=== PATIENT | male | born 1955 | race Two or more races ===

== ENCOUNTER 2016-11-24 08:05 | Emergency (ER) | payer OTHER ==
[2016-11-24] MEDS ORDERED: MORPHINE SULFATE 10 MG/ML INJ IM ONE (09:19)
[2016-11-24] MEDS ORDERED: DEXAMETHASONE SOD PHOS INJ 10 MG/1 ML VIAL IM ONE (09:19)
--- NOTE | 2016-11-24 09:22 | ER Document Report ---
ED General - General Chief Complaint: Leg Pain Stated Complaint: LEG PAIN Time Seen by Provider: 11/24/16 08:41 Mode of Arrival: Ambulatory Information source: Patient Notes: 60-year-old male history of chronic back pain with sciatica who has been on Percocet in the past was was switched to gabapentin notes that for the past 3 days his pain has not been controlled well. Patient denies any new injuries denies any loss of bowel or bladder function denies any numbness or weakness in the leg. TRAVEL OUTSIDE OF THE [place] IN LAST 30 DAYS: No - HPI Onset: Other - Chronic but worsened over the past 3 days Onset/Duration: Worse Quality of pain: Achy Severity: Mild Pain Level: 2 Associated symptoms: Body/muscle aches Exacerbated by: Movement, Walking Relieved by: Denies Similar symptoms previously: Yes Recently seen / treated by doctor: Yes - Related Data Allergies/Adverse Reactions: No Known Allergies Allergy (Verified 11/24/16 08:13) Past Medical History - Social History Smoking Status: Current Every Day Smoker Cigarette use (# per day): Yes Chew tobacco use (# tins/day): No Smoking Education Provided: No Frequency of alcohol use: None Drug Abuse: None Family History: Reviewed & Not Pertinent Patient has suicidal ideation: No Patient has homicidal ideation: No - Past Medical History Cardiac Medical History: Reports: Hx Coronary Artery Disease, Hx Heart Attack - 2008, 2 stents placed, Hx Hypertension Pulmonary Medical History: Denies: Hx Asthma, Hx Bronchitis, Hx COPD, Hx Pneumonia Neurological Medical History: Denies: Hx Cerebrovascular Accident, Hx Seizures Renal/ Medical History: Denies: Hx Peritoneal Dialysis Musculoskeltal Medical History: Reports Hx Arthritis Past Surgical History: Reports: Hx Cardiac Surgery, Hx Nose Surgery, Hx Orthopedic Surgery - Immunizations Hx Diphtheria, Pertussis, Tetanus Vaccination: Yes Review of Systems - Review of Systems Notes: PHYSICAL EXAMINATION: GENERAL: Well-appearing, well-nourished and in no acute distress. HEAD: Atraumatic, normocephalic. EYES: Pupils equal round and reactive to light, extraocular movements intact, sclera anicteric, conjunctiva are normal. ENT: Nares patent, oropharynx clear without exudates. Moist mucous membranes. NECK: Normal range of motion, supple without lymphadenopathy LUNGS: Breath sounds clear to auscultation bilaterally and equal. No wheezes rales or rhonchi. HEART: Regular rate and rhythm without murmurs ABDOMEN: Soft, nontender, nondistended abdomen. No guarding, no rebound. No masses appreciated. Musculoskeletal: Normal range of motion, no pitting or edema. No cyanosis. Patient is able to ambulate with cane with no difficulty tenderness on palpation of the L3-L5 region no step-off no deformity NEUROLOGICAL: Cranial nerves grossly intact. Normal speech, normal gait. Normal sensory, motor exams PSYCH: Normal mood, normal affect. SKIN: Warm, Dry, normal turgor, no rashes or lesions noted. Physical Exam - Vital signs Vitals: Temp Pulse Resp BP Pulse Ox 97.7 F 67 16 129/69 H 97 11/24/16 08:14 11/24/16 08:14 11/24/16 08:14 11/24/16 08:14 11/24/16 08:14 Course - Re-evaluation Re-evalutation: 11/24/16 09:19 Patient instructed on risks and benefits of medications prescribed. Denies any concerns regarding such. 11/24/16 12:16 Given that there is no cauda equina concerns I do not expect any life- threatening issues, I do not believe imaging is appropriate at this time. Patient has follow-up with [facility] must follow-up with them. Otherwise patient looks well is in no distress will be started on steroids and pain control and follow-up After performing a Medical Screening Examination, I estimate there is LOW risk for EXPANDING OR RUPTURED ABDOMINAL AORTIC ANEURYSM, CAUDA EQUINA SYNDROME, EPIDURAL MASS LESION, or HERNIATED DISK CAUSING SEVERE SPINAL STENOSIS, thus I consider the discharge disposition reasonable. I have reevaluated this patient multiple times and no significant life threatening changes are noted. The patient and I have discussed the diagnosis and risks, and we agree with discharging home and close follow-up. We also discussed returning to the Emergency Department immediately if new or worsening symptoms occur with the understanding that symptoms and presentations can change. We have discussed the symptoms which are most concerning (e.g., saddle anesthesia, urinary or bowel incontinence or retention, changing or worsening pain) that necessitate immediate return. - Vital Signs Vital signs: Temp Pulse Resp BP Pulse Ox 97.8 F 70 16 128/64 H 97 11/24/16 09:45 11/24/16 09:45 11/24/16 09:45 11/24/16 09:45 11/24/16 09:45 Discharge - Discharge Clinical Impression: Sciatic leg pain Chronic leg pain Qualifiers: Laterality: left Qualified Code(s): M79.605 - Pain in left leg Condition: Stable Disposition: HOME, SELF-CARE Instructions: Sciatica (OM) Additional Instructions: Follow up with your physician tomorrow for further care or return to the ED IMMEDIATELY if symptoms worsen or new concerns occur. If you cannot afford to follow up with your primary care physician a list of low cost clinics have been provided at the end of your discharge papers as well. Prescriptions: Oxycodone HCl/Acetaminophen [Percocet 5-325 mg Tablet] 1 - 2 tab PO Q4H PRN #15 tablet PRN Reason: Prednisone [Deltasone 20 mg Tablet] 3 tab PO DAILY 5 Days
[2016-11-24 09:58] VITALS: BP 128/64
== END 2016-11-24 09:48 | disposition home or self-care (01) ==
LOC: ER 08:05
DX: M54.42 Lumbago with sciatica, left side (principal); G89.29 Other chronic pain; M79.1 Myalgia; F17.210 Nicotine dependence, cigarettes, uncomplicated; I25.10 Atherosclerotic heart disease of native coronary artery without angina pectoris; I10 Essential (primary) hypertension; I25.2 Old myocardial infarction
CPT/HCPCS: 99283; 96372; J2270; J1100

== ENCOUNTER 2017-04-04 10:38 | Emergency (ER) | payer OTHER ==
[2017-04-04 10:45] VITALS: BP 149/82
[2017-04-04] MEDS ORDERED: DEXAMETHASONE SOD PHOS INJ 10 MG/1 ML VIAL IM ONE (11:02)
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
== END 2017-04-04 11:20 | disposition home or self-care (01) ==
LOC: ER 10:38
DX: M54.42 Lumbago with sciatica, left side (principal); M79.604 Pain in right leg; M79.605 Pain in left leg; M54.9 Dorsalgia, unspecified; G89.29 Other chronic pain; F17.210 Nicotine dependence, cigarettes, uncomplicated
CPT/HCPCS: 99283; J1100

== ENCOUNTER 2017-04-23 15:42 | Emergency (ER) | payer OTHER ==
[2017-04-23] MEDS ORDERED: HYDROMORPHONE HCL INJ/PF 2 MG/ML AMPULE IV ONE (16:01)
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
[2017-04-23] MEDS ORDERED: NORMAL SALINE 1000 ML 1,000 ML IV ONE (16:55)
[2017-04-23] MEDS ORDERED: CEFTRIAXONE 1 GM/D5W RTU 1 GM/50 ML RTUPB IV ONE (16:55)
[2017-04-23 18:25] VITALS: BP 142/98
[2017-04-23] MEDS ORDERED: OXYCODONE-ACETAMINOPHEN 5-325 MG TABLET PO ONE (18:28)
== END 2017-04-23 18:40 | disposition short-term general hospital (02) ==
LOC: ER 15:42
DX: T23.232A Burn of second degree of multiple left fingers (nail), not including thumb, initial encounter (principal); I10 Essential (primary) hypertension; F17.210 Nicotine dependence, cigarettes, uncomplicated; X10.2XXA Contact with fats and cooking oils, initial encounter
CPT/HCPCS: 99285; 96375; 96365; J1170; J7030; J0696

== ENCOUNTER 2018-06-01 13:54 | Emergency (ER) | payer OTHER ==
[2018-06-01 14:01] VITALS: BP 155/92
[2018-06-01] MEDS ORDERED: DIAZEPAM 5 MG TABLET PO ONE (14:34)
[2018-06-01] MEDS ORDERED: KETOROLAC TROMETHAMINE 60 MG/2 ML SDV IM ONE (14:34)
[2018-06-01] MEDS ORDERED: METHYLPREDNISOLONE ACETATE INJ 80 MG/1 ML VIAL IM ONE (14:34)
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
== END 2018-06-01 14:54 | disposition home or self-care (01) ==
LOC: ER 13:54
DX: M54.16 Radiculopathy, lumbar region (principal); F17.200 Nicotine dependence, unspecified, uncomplicated; I25.10 Atherosclerotic heart disease of native coronary artery without angina pectoris; I10 Essential (primary) hypertension; Z95.5 Presence of coronary angioplasty implant and graft
CPT/HCPCS: 99283; 96372; J1885; J1040

== ENCOUNTER 2018-10-07 11:36 | Emergency (ER) | payer OTHER ==
[2018-10-07 11:45] VITALS: BP 131/73
[2018-10-07] MEDS ORDERED: DEXAMETHASONE SOD PHOS INJ 10 MG/1 ML VIAL IM ONE (12:14)
[2018-10-07] MEDS ORDERED: LIDOCAINE 5% (700 MG) TRANSDERMAL ADH..PATCH TP ONE (12:15)
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
== END 2018-10-07 12:20 | disposition home or self-care (01) ==
LOC: ER 11:36
DX: M54.42 Lumbago with sciatica, left side (principal); F17.210 Nicotine dependence, cigarettes, uncomplicated; I25.10 Atherosclerotic heart disease of native coronary artery without angina pectoris; I25.2 Old myocardial infarction; E78.00 Pure hypercholesterolemia, unspecified; I10 Essential (primary) hypertension
CPT/HCPCS: 99406; 99283; 96372; J1100

== ENCOUNTER 2019-03-12 21:49 | Emergency (ER) | payer OTHER ==
[2019-03-12] MEDS ORDERED: NORMAL SALINE 1000 ML 1,000 ML IV ONE (22:04)
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
[2019-03-12 22:11] LABS: ABSOLUTE BASOPHILS # (AUTO) 0.1 10^3/uL (0.0-0.2); ABSOLUTE EOSINOPHILS # (AUTO) 0.1 10^3/uL (0.0-0.6); ABSOLUTE MONOCYTES (AUTO) 0.7 10^3/uL (0.1-1.4); ABSOLUTE NEUT (AUTO) 9.5 10^3/uL (1.7-8.2); BASOPHILS % (AUTO) 0.5 % (0-2); EOSINOPHILS % (AUTO) 0.6 % (0-6); HEMATOCRIT 49.5 % (37.9-51.0); HEMOGLOBIN 16.6 g/dL (13.5-17.0); LYMPHOCYTES % (AUTO) 8.7 % (13-45); MEAN CORPUSCULAR HEMOGLOBIN 29.7 pg (27.0-33.4); MEAN CORPUSCULAR HGB CONC 33.5 g/dL (32.0-36.0); MEAN CORPUSCULAR VOLUME 89 fl (80-97); PLATELET COUNT 261 10^3/uL (150-450); RED BLOOD COUNT 5.58 10^6/uL (4.35-5.55); RED CELL DISTRIBUTION WIDTH 13.9 % (11.5-14.0); SEGMENTED NEUTROPHILS % (AUTO) 84.2 % (42-78); TOTAL CELLS COUNTED % (AUTO) 100 %; WHITE BLOOD COUNT 11.3 10^3/uL (4.0-10.5)
[2019-03-12 22:31] LABS: ALBUMIN 4.2 g/dL (3.5-5.0); ALKALINE PHOSPHATASE 1087 U/L (38-126); ANION GAP 14 (5-19); ASPARTATE AMINO TRANSFERASE 276 U/L (17-59); BILIRUBIN,DIRECT 2.9 mg/dL (0.0-0.4); BILIRUBIN,TOTAL 3.5 mg/dL (0.2-1.3); BLOOD UREA NITROGEN 13 mg/dL (7-20); CALCIUM 9.7 mg/dL (8.4-10.2); CARBON DIOXIDE 25 mmol/L (22-30); CHLORIDE 99 mmol/L (98-107); GLUCOSE 128 mg/dL (75-110); POTASSIUM 4.1 mmol/L (3.6-5.0); TOTAL PROTEIN 8.1 g/dL (6.3-8.2)
[2019-03-12] MEDS ORDERED: MORPHINE SULFATE 10 MG/ML INJ IV ONE (22:56)
--- NOTE | 2019-03-13 00:16 | EKG REPORT ---
SEVERITY:- ABNORMAL ECG - SINUS RHYTHM PROBABLE LEFT ATRIAL ABNORMALITY PROBABLE INFERIOR INFARCT, AGE INDETERMINATE CONSIDER ANTERIOR INFARCT : Confirmed by: Haley Varela MD 13-Mar-2019 00:15:04
--- NOTE | 2019-03-13 00:29 | RADIOLOGY REPORT (SQ) ---
EXAM DESCRIPTION: US ABDOMEN LIMITED COMPLETED DATE/TME: 03/12/2019 22:55 CLINICAL HISTORY: 63 years, Male, RUQ pain COMPARISON: CT 12/28/2015 TECHNIQUE: Limited right upper quadrant ultrasound LIMITATIONS: None. FINDINGS: The liver is heterogeneous and nodular in echotexture. There is a 3.9 x 2.8 x 4.1 cm hypo to isoechoic nodular area within the left hepatic lobe. Further assessment with multiphasic CT or MRI is recommended. The gallbladder appears contracted. Stones and sludge in the gallbladder lumen. Pain with palpation over the right upper quadrant. Subjective gallbladder wall thickening may in part relate to the contracted state of the gallbladder. The CBD is not dilated measuring 3.3 cm. Pancreas is not well seen due to bowel gas. Visualized abdominal aorta inferior vena cava are unremarkable. No ascites. Simple right renal cyst measuring 6.6 x 6.4 cm. IMPRESSION: Heterogeneous echotexture to the liver may reflect fatty infiltrative change and/or hepatocellular disease. 3.9 cm complex hypoechoic to isoechoic area in the left hepatic lobe. This is nonspecific however further assessment with multiphasic MRI or CT is recommended. Cholelithiasis. The gallbladder is somewhat contracted. Pain with palpation over the right upper quadrant. The CBD is not dilated. Simple right renal cyst copyright 2010 [employer]- All Rights Reserved
[2019-03-13] MEDS ORDERED: PIPERACILLIN/TAZOBACTAM 3.375 GM VIAL IV ONE (00:50)
[2019-03-13] MEDS ORDERED: NORMAL SALINE 1000 ML 1,000 ML IV ONE (01:37)
[2019-03-13] MEDS: MORPHINE SULFATE 10 MG/ML INJ IV PRN ×4 (02:17→20:07)
--- NOTE | 2019-03-13 09:11 | ER Document Report ---
Doctor's Note Notes: 03/13/19 09:09 Patient noted by me patient is being transferred for consideration of ERCP Zosyn is scheduled every 6 hours while in this emergency department. Patient stable at this time
[2019-03-13] MEDS: PIPERACILLIN/TAZOBACTAM 3.375 GM VIAL IV SCH ×3 (09:23→20:08)
[2019-03-13] MEDS ORDERED: FAMOTIDINE INJ/PF 20 MG/2 ML SDV IV ONE (20:30)
[2019-03-13] MEDS ORDERED: ONDANSETRON HCL INJ/PF 4 MG/2 ML SDV IV ONE (20:30)
[2019-03-13] MEDS ORDERED: POTASSI CL 20 MEQ/D5-1/2NS 1L 1,000 ML IV ONE (20:31)
[2019-03-13 21:28] LABS: ABSOLUTE BASOPHILS # (AUTO) 0.1 10^3/uL (0.0-0.2); ABSOLUTE LYMPHOCYTES (AUTO) 1.3 10^3/uL (0.5-4.7); BASOPHILS % (AUTO) 0.5 % (0-2); TOTAL CELLS COUNTED % (AUTO) 100 %
[2019-03-13 21:34] LABS: ABSOLUTE MONOCYTES (AUTO) 1.3 10^3/uL (0.1-1.4); ABSOLUTE NEUT (AUTO) 11.6 10^3/uL (1.7-8.2); EOSINOPHILS % (AUTO) 0.2 % (0-6); HEMATOCRIT 48.6 % (37.9-51.0); HEMOGLOBIN 16.3 g/dL (13.5-17.0); LYMPHOCYTES % (AUTO) 9.2 % (13-45); MEAN CORPUSCULAR HEMOGLOBIN 29.9 pg (27.0-33.4); MEAN CORPUSCULAR HGB CONC 33.5 g/dL (32.0-36.0); MEAN CORPUSCULAR VOLUME 89 fl (80-97); MONOCYTES % (AUTO) 9.3 % (3-13); PLATELET COUNT 243 10^3/uL (150-450); RED BLOOD COUNT 5.45 10^6/uL (4.35-5.55); RED CELL DISTRIBUTION WIDTH 14.1 % (11.5-14.0); SEGMENTED NEUTROPHILS % (AUTO) 80.8 % (42-78); WHITE BLOOD COUNT 14.4 10^3/uL (4.0-10.5)
[2019-03-13 21:52] LABS: ALBUMIN 3.9 g/dL (3.5-5.0); ALKALINE PHOSPHATASE 873 U/L (38-126); ANION GAP 10 (5-19); ASPARTATE AMINO TRANSFERASE 212 U/L (17-59); BILIRUBIN,DIRECT 7.3 mg/dL (0.0-0.4); BLOOD UREA NITROGEN 11 mg/dL (7-20); CALCIUM 9.4 mg/dL (8.4-10.2); CARBON DIOXIDE 25 mmol/L (22-30); CHLORIDE 99 mmol/L (98-107); GLUCOSE 106 mg/dL (75-110); POTASSIUM 4.2 mmol/L (3.6-5.0); TOTAL PROTEIN 7.6 g/dL (6.3-8.2)
[2019-03-13 22:01] LABS: BILIRUBIN,TOTAL 8.8 mg/dL (0.2-1.3)
[2019-03-14] MEDS: MORPHINE SULFATE 10 MG/ML INJ IV PRN ×3 (00:30→14:03)
[2019-03-14] MEDS: PIPERACILLIN/TAZOBACTAM 3.375 GM VIAL IV SCH ×3 (05:49→14:24)
[2019-03-14] MEDS ORDERED: HYDROMORPHONE HCL INJ/PF 2 MG/ML AMPULE IV ONE (10:21)
[2019-03-14] MEDS ORDERED: ONDANSETRON HCL INJ/PF 4 MG/2 ML SDV IV ONE (10:21)
--- NOTE | 2019-03-14 10:30 | ER Document Report ---
Doctor's Note Notes: 03/14/19 10:28 Assumed care of patient awaiting transfer to [facility] for gallstones and possible cholecystitis. In need of ERCP, not available at this hospital. Patient continues to complain of pain in the right upper quadrant and says she is been nauseated and vomiting but not currently. Abdomen is soft without guarding. I got a call from [facility] transfer center and they asked if we could do an MRCP here to perhaps be along the process of getting the patient there. I contacted MRI and a study will be formed PRETTY. Patient's lab studies had shown some significant worsening with his total bilirubin going from 3.5 at 2155 on 03/12/2019 and up to 8.8 total bilirubin on 03/13/2019 at 2116. 03/14/19 13:49 Patient has had his MRCP which shows gallstones and thickened gallbladder wall and pericholecystic fluid consistent with cholecystitis. His MRCP did not show clearly any problems with the common bile duct and was determined to be "not meaningfully evaluated". Of interest, patient has multiple liver masses, either hemangiomas or hepatocellular carcinoma. Also seen was thrombus within the right portal vein system and distal branches which does not exclude possibility of tumor thrombus. I have made the patient aware of these findings. Poke with Dr. Jc at [facility] and the plan is still to transfer the patient there, although there are no beds available at this time. 03/14/19 19:13 Patient told the nurse that he was going to leave and seek care elsewhere. I had already previously explained to the patient that we could not send him to another facility without having a bed assignment and excepting provider. He is currently on the waiting list for [facility] and for [facility] and several other places were called initially to see if they had capability of doing ERCP. Neither of the facilities have a likelihood of getting a bed tonight. Patient has been treated with pain medications as much as he needed during his stay. However, he does not understand why we cannot send him to one of these hospitals and he said he is going to leave and go to one of them himself. I advised him that I cannot advise him to do that and recommended that he be patient wait until we get a bed assignment at 1 of the 2 hospitals. Patient became rather hostile and angry and said he was very upset with his care at this facility.
--- NOTE | 2019-03-14 12:36 | RADIOLOGY REPORT (SQ) ---
EXAM DESCRIPTION: MRI ABDOMEN COMBO COMPLETED DATE/TIME: 03/14/2019 11:42 am REASON FOR STUDY: for MRCP, US WITH GALLSTONES COMPARISON: Abdominal ultrasound, 03/12/2019, CT abdomen pelvis, 12/28/2015 TECHNIQUE: Multiplanar multisequence imaging performed without and with multiphasic contrast enhance d including sagittal, axial and coronal T2, axial T1, axial gradient fat sat T1, axial, sagittal and coronal fat sat T1 post contrast. CONTRAST TYPE AND DOSE: 20 mL Dotarem. RENAL FUNCTION: Not indicated. ACR Type II contrast agent associated with few, if any, unconfounded cases of NSF LIMITATIONS: None. FINDINGS: LIVER: The liver is mildly enlarged, with a somewhat nodular contour and is very heterogen eous in signal texture and enhancement. There are multiple liver masses, with varying signal charact eristics and enhancement. A large subcapsular mass of the right lobe of the liver is seen on prior C T dated 12/28/2015 and demonstrates peripheral nodular enhancement consistent with hemangioma. There is a lesion of the central right lobe of the liver which likewise demonstrates peripheral nodular enh ancement and is seen on prior examination dated 12/28/2015, also consistent with a hemangioma. There are multiple additional masses and nodules, for example in the posterior dome of the right lobe of the liver measuring 3.4 cm, hepatic segment VII (series 104, image 17), and in the posterior infe rior right lobe of the liver measuring 4.1 cm, hepatic segment (series 104, image 44), which demon strate intermediate suspicion imaging features and contrast enhancement. There appears to be thrombus within the right portal vein and distal branches (series 14, image 32, s eries 15, image 33). SPLEEN: Normal size. No focal lesions. PANCREAS: No masses. No adjacent inflammation or peripancreatic fluid collections. Pancreatic duct no t dilated. GALLBLADDER: There is a calculus within the contracted gallbladder and gallbladder wall thickening an d/or pericholecystic fluid in the gallbladder fossa. MRCP is nondiagnostic due to motion artifact an d susceptibility artifact emanating from the duodenum. The central common bile duct is not meaningfu lly evaluated. ADRENAL GLANDS: No significant masses or asymmetry. RIGHT KIDNEY AND URETER: No masses. Exophytic cyst. No hydronephrosis. LEFT KIDNEY AND URETER: No masses. No hydronephrosis. AORTA AND VESSELS: No aneurysm. No dissection. Renal arteries, SMA, celiac without stenosis. RETROPERITONEUM: No retroperitoneal adenopathy, hemorrhage or masses. BOWEL: No visualized masses. No inflammation. No significant dilatation. ABDOMINAL WALL AND PERITONEUM: No hernias. No free fluid. BONES: No acute or significant findings. OTHER: No other significant finding. IMPRESSION: 1. There is a calculus within the contracted gallbladder and gallbladder wall thickenin g and/or pericholecystic fluid in the gallbladder fossa. MRCP is nondiagnostic due to motion artifac t and susceptibility artifact emanating from the duodenum. The central common bile duct is not meani ngfully evaluated. HIDA may be used to further evaluate for obstruction of the cystic or common bile duct if liver function allows. 2. The liver is mildly enlarged, with a somewhat nodular contour and is very heterogeneous in signal texture and enhancement. There are multiple liver masses, with varying signal characteristics and en hancement. A large subcapsular mass of the right lobe of the liver is seen on prior CT dated 12/28/19 16 and demonstrates peripheral nodular enhancement consistent with hemangioma. There is a lesion of the central right lobe of the liver which likewise demonstrates peripheral nodular enhancement and is seen on prior examination dated 12/28/2015, also consistent with a hemangioma. 3. There are multiple additional masses and nodules, for example in the posterior dome of the right l obe of the liver measuring 3.4 cm, hepatic segment VII (series 104, image 17), and in the posterior i nferior right lobe of the liver measuring 4.1 cm, hepatic segment (series 104, image 44), which de monstrate intermediate suspicion imaging features and contrast enhancement. 4. There appears to be thrombus within the right portal vein and distal branches (series 14, image 3 2, series 15, image 33). This is indeterminate with respect to composition, and tumor thrombus is no t excluded. 5. Within the general technical limitations of this examination, there are stigmata of cirrhosis and dysplastic nodularity of the liver. Multiple indeterminate masses carry intermediate suspicion for hepatocellular carcinoma (LI-RADS category 3, if LI-RADS criteria are to be applied). Consider repea t imaging, for example with multiphasic CT which may provide a technically superior exam, and/or foll ow-up imaging in 3-6 months to evaluate for interval change. TECHNICAL DOCUMENTATION: JOB ID: [id number]- All Rights Reserved Reading location - IP/workstation name: [email or web address]
[2019-03-14 13:41] VITALS: BP 124/76
[2019-03-14] MEDS ORDERED: HYDROMORPHONE HCL INJ/PF 2 MG/ML AMPULE IV PRN (17:38)
[2019-03-15 11:37] LABS: HEPATITS B SURFACE ANTIGEN Negative (Negative)
[2019-03-15 13:20] LABS: HEPATITIS C VIRUS ANTIBODY >11.0 s/co ratio (0.0-0.9)
== END 2019-03-14 19:21 | disposition short-term general hospital (02) ==
LOC: ER 21:49
DX: K81.9 Cholecystitis, unspecified (principal); E80.6 Other disorders of bilirubin metabolism; N28.1 Cyst of kidney, acquired; R10.9 Unspecified abdominal pain; I10 Essential (primary) hypertension; I25.10 Atherosclerotic heart disease of native coronary artery without angina pectoris; I25.2 Old myocardial infarction; E78.00 Pure hypercholesterolemia, unspecified
CPT/HCPCS: 93005; 36415; 83690; 85025; 86038; 80053; 84484; 80074; 74183; 76705; 93010; A9576; J2270 ×3; J1170; J3480; J2405 ×2; J7030 ×2; S0028; J2543 ×2; 96361; 96365; 96366; 96367; 96375; 96376; 99285

== ENCOUNTER 2019-04-05 17:38 | Emergency (ER) | payer OTHER ==
[2019-04-05] MEDS ORDERED: KETOROLAC TROMETHAMINE 60 MG/2 ML SDV IM ONE (18:28)
[2019-04-05] MEDS ORDERED: LIDOCAINE 5% (700 MG) TRANSDERMAL ADH..PATCH TP ONE (18:28)
[2019-04-05] MEDS ORDERED: CYCLOBENZAPRINE HCL 10 MG TABLET PO ONE (18:29)
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
[2019-04-05 19:52] VITALS: BP 144/98
== END 2019-04-05 19:51 | disposition home or self-care (01) ==
LOC: ER 17:38
DX: M54.42 Lumbago with sciatica, left side (principal); M54.9 Dorsalgia, unspecified; G89.29 Other chronic pain; X50.0XXA Overexertion from strenuous movement or load, initial encounter; F17.200 Nicotine dependence, unspecified, uncomplicated; I25.10 Atherosclerotic heart disease of native coronary artery without angina pectoris; I10 Essential (primary) hypertension
CPT/HCPCS: 99283; 96372; J1885

== ENCOUNTER 2019-04-16 22:56 | Emergency (ER) | payer OTHER ==
[2019-04-16] MEDS ORDERED: DEXAMETHASONE SOD PHOS INJ 10 MG/1 ML VIAL IM ONE (23:36)
[2019-04-16] MEDS ORDERED: HYDROCODONE/ACETAMINOPHEN 5-325 MG (6 TAB/ER DISP) PO PRN (23:37)
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
[2019-04-17 00:13] VITALS: BP 117/81
== END 2019-04-17 00:10 | disposition home or self-care (01) ==
LOC: ER 22:56
DX: M62.830 Muscle spasm of back (principal); M54.5 Low back pain; M54.9 Dorsalgia, unspecified; X50.0XXA Overexertion from strenuous movement or load, initial encounter; Z79.899 Other long term (current) drug therapy; F17.200 Nicotine dependence, unspecified, uncomplicated; I25.10 Atherosclerotic heart disease of native coronary artery without angina pectoris; I25.2 Old myocardial infarction; I10 Essential (primary) hypertension
CPT/HCPCS: 99283; 96372; J1100

== ENCOUNTER → 2019-07-10 | Outpatient (CLI) | payer OTHER ==
--- NOTE | 2019-07-10 13:57 | RADIOLOGY REPORT (SQ) ---
EXAM DESCRIPTION: CT CHEST WITH; CT ABD/PELVIS WITH IV ORAL COMPLETED DATE/TIME: 07/10/2019 1:04 pm REASON FOR STUDY: (C22.0)LIVER CELL CARCINOMA C22.0 LIVER CELL CARCINOMA COMPARISON: CT ABDOMEN PELVIS 12/28/2015, CT CHEST 12/31/2015 ABDOMINAL ULTRASOUND 03/12/2019 MRI ABDOMEN 03/14/2019 CONTRAST TYPE AND DOSE: contrast/concentration: Isovue 350.00 mg/ml; Total Contrast Delivered: 78.0 ml; Total Saline Delivered: 67.0 ml RENAL FUNCTION: Creatinine 0.9 TECHNIQUE: CT scan of the chest performed using helical scanning technique with dynamic intravenous contrast injection. Images reviewed with lung, soft tissue and bone windows. Reconstructed coronal a nd sagittal MPR images reviewed. All images stored on PACS. CT scan of the abdomen and pelvis performed with intravenous and with oral contrastusing helical scan kim technique with dynamic intravenous contrast injection. Images reviewed with lung, soft tissue a nd bone windows. Reconstructed coronal and sagittal MPR images reviewed. Delayed images for evaluat ion of the urinary system also acquired and evaluated. All images stored on PACS. All CT scanners at this facility use dose modulation, iterative reconstruction, and/or weight based d osing when appropriate to reduce radiation dose to as low as reasonably achievable (ALARA). [facility]: Dose Right [facility]: CareDose [facility]: Dose Right [facility]: Teradose 4D [facility]: Smart Technologies RADIATION DOSE: CT Rad equipment meets quality standard of care and radiation dose reduction techniq ues were employed. CTDIvol: 7.1 - 7.4 mGy. DLP: 1103 mGy-cm. . LIMITATIONS: None. FINDINGS: CHEST: LUNGS AND PLEURA: New subcentimeter nodules are present at the left lung apex axial image 14, and in the right lower lobe axial image 56 and 62. Findings are new compared to prior CT chest in 2015 and are worrisome for metastatic disease. HILAR AND MEDIASTINAL STRUCTURES: No identified masses or abnormal nodes. HEART AND VASCULAR STRUCTURES: No aneurysm or dissection. No central pulmonary emboli. No pericardi al effusion. HARDWARE: None. THYROID AND OTHER SOFT TISSUES: No masses. No adenopathy. BONES: T12 pathologic fracture with vertebra plana. There is less than 50% AP diameter canal comprom ise on sagittal image 37/69. 3 cm lytic lesion in the right scapula at the bony glenoid axial image 21. OTHER: No other significant finding. ABDOMEN AND PELVIS: LIVER: Progression of liver disease compared to MRI 03/14/2019 as follows: Right lobe liver subdiaphragmatic surface segment 7 lesion 5 x 4.5 cm in size (was 4 x 3.4 cm on 03/14). Right lobe liver mass 8 x 6 cm in size segment 8 (was 5.6 x 5 cm on 03/14/2019). Right lobe liver mass 5 x 6.2 cm mass segment 6 (was was 4 x 3.4 cm in size on 03/14/2019). Right lobe of liver mass 8 x 6 cm segment 6 (was 6.7 x 6 cm on 03/14/2019). There is now intrahepatic biliary ductal dilatation and the right lobe liver, likely due to extrinsic compression at the fabiana hepatis from tumor. Portal vein is patent. 3 x 1.4 cm portacaval space lymph node axial image 35/100 (was 2.9 by 1.4 cm on 03/14/2019). SPLEEN: Normal size. No focal lesions. PANCREAS: No masses. No significant calcifications. No adjacent inflammation or peripancreatic fluid collections. Pancreatic duct not dilated. GALLBLADDER: Tiny stones in the gallbladder. ADRENAL GLANDS: No significant masses or asymmetry. RIGHT KIDNEY AND URETER: No solid masses. No significant calcification. No hydronephrosis or hydroure ter. LEFT KIDNEY AND URETER: No solid masses. No significant calcification. No hydronephrosis or hydrouret er. AORTA AND VESSELS: No aneurysm. No dissection. Renal arteries, SMA, celiac without stenosis. RETROPERITONEUM: No retroperitoneal adenopathy, hemorrhage or masses. BOWEL AND PERITONEAL CAVITY: Patient drank oral contrast. No masses or inflammatory changes. No free fluid or peritoneal masses. APPENDIX: Normal. ABDOMINAL WALL: No masses. No hernias. PELVIS: No mass or free fluid. 4 mm calcification in the bladder wall near the left ureteral orifice into the bladder. This is new compared to prior studies. BONES: T12 vertebra plana deformity at the upper edge of the field of view OTHER: No other significant finding. IMPRESSION: Tiny in lung lesions worrisome for metastatic disease Bony metastatic lesions at the T12 vertebral body and right scapula Progression of disease in the liver TECHNICAL DOCUMENTATION: JOB ID: [id number] Quality ID # 436: Final reports with documentation of one or more dose reduction techniques (e.g., Au tomated exposure control, adjustment of the mA and/or kV according to patient size, use of iterative reconstruction technique) 2010 [employer]- All Rights Reserved Reading location - IP/workstation name: [email or web address]
== END ==
LOC: RAD 12:20
PROVIDERS: ATTEND Internal Medicine Hematology & Oncology
DX: C22.0 Liver cell carcinoma (principal)
CPT/HCPCS: 71260; 74177; 82565

== ENCOUNTER → 2019-07-20 | Outpatient (CLI) | payer OTHER ==
--- NOTE | 2019-07-21 14:45 | RADIOLOGY REPORT (SQ) ---
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 Images re viewed with lung, soft tissue and bone windows. Reconstructed coronal and sagittal MPR images review ed. Images stored on PACS. All CT scanners at this facility use dose modulation, iterative reconstruction, and/or weight based d osing when appropriate to reduce radiation dose to as low as reasonably achievable (ALARA). [facility]: Dose Right [facility]: CareDose [facility]: Dose Right [facility]: Teradose 4D [facility]: [employer] RADIATION DOSE: CT Rad equipment meets quality standard of care and radiation dose reduction techniq ues were employed. CTDIvol: 37.7 mGy. DLP: 1317 mGy-cm. mGy. LIMITATIONS: None. FINDINGS: A T12 vertebra plana deformity is present, similar compared to CT chest 07/10/2019. There is bone and tumor bulging into the spinal canal, causing about 50% spinal canal narrowing anteriorly . This report was called to MIMI Breen in Radiation Oncology, 07/21/2019, 2 pm. VISUALIZED LUNGS: Tiny metastatic lesions in the lung bases. SOFT TISSUES: No soft tissue swelling. No masses. VERTEBRAL BODIES: Vertebra plana deformity with 50% canal narrowing at the T12 level. DISCS: 50% canal narrowing at the T12 level. No significant disc herniations ALIGNMENT: Focal kyphosis at T12 from compression deformity TRANSVERSE PROCESSES, POSTERIOR ELEMENTS: No fractures. No dislocation. No acute findings. HARDWARE: None in the spine. VISUALIZED RIBS: No fractures. OTHER: No other significant finding. IMPRESSION: Vertebra plana at T12, with bone and tumor bulging into the spinal canal causing about 5 0% canal narrowing anteriorly. TECHNICAL DOCUMENTATION: JOB ID: [id number] Quality ID # [id number]: Final reports with documentation of one or more dose reduction techniques (e.g., Au tomated exposure control, adjustment of the mA and/or kV according to patient size, use of iterative reconstruction technique) 2010 [employer]- All Rights Reserved Reading location - IP/workstation name: [id number]
== END ==
LOC: RAD 16:15
PROVIDERS: ATTEND Radiology Radiation Oncology
DX: C22.0 Liver cell carcinoma (principal); C79.51 Secondary malignant neoplasm of bone
CPT/HCPCS: 72128

== ENCOUNTER 2019-11-29 13:46 | Emergency (ER) | payer OTHER ==
[2019-11-29] MEDS ORDERED: HYDROMORPHONE HCL INJ/PF 2 MG/ML AMPULE IV ONE (13:49)
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
[2019-11-29 14:22] LABS: HEMATOCRIT 25.9 % (37.9-51.0); HEMOGLOBIN 8.6 g/dL (13.5-17.0); MEAN CORPUSCULAR HEMOGLOBIN 30.2 pg (27.0-33.4); MEAN CORPUSCULAR HGB CONC 33.4 g/dL (32.0-36.0); MEAN CORPUSCULAR VOLUME 90 fl (80-97); PLATELET COUNT 436 10^3/uL (150-450); RED BLOOD COUNT 2.86 10^6/uL (4.35-5.55); RED CELL DISTRIBUTION WIDTH 20.5 % (11.5-14.0); WHITE BLOOD COUNT 11.5 10^3/uL (4.0-10.5)
--- NOTE | 2019-11-29 14:28 | RADIOLOGY REPORT (SQ) ---
EXAM DESCRIPTION: CHEST SINGLE VIEW IMAGES COMPLETED DATE/TIME: 11/29/2019 2:18 pm REASON FOR STUDY: CP, CA COMPARISON: AP view of the chest from 12/28/2015. EXAM PARAMETERS: NUMBER OF VIEWS: One view. TECHNIQUE: An AP view of the chest was obtained. RADIATION DOSE: NA LIMITATIONS: None. FINDINGS: LUNGS AND PLEURA: No consolidation, pleural effusion or pneumothorax. MEDIASTINUM AND HILAR STRUCTURES: No mediastinal or hilar contour abnormality. HEART AND VASCULAR STRUCTURES: The cardiac silhouette and pulmonary vasculature are within normal barrera its. BONES: No acute findings. HARDWARE: None in the chest. OTHER: No other finding. IMPRESSION: No acute cardiopulmonary process. TECHNICAL DOCUMENTATION: JOB ID: [id number] 2010 [employer]- All Rights Reserved Reading location - IP/workstation name: [email or web address]
[2019-11-29 14:37] LABS: ALBUMIN 2.7 g/dL (3.5-5.0); ALKALINE PHOSPHATASE 569 U/L (38-126); ANION GAP 5 (5-19); ASPARTATE AMINO TRANSFERASE 372 U/L (17-59); BILIRUBIN,DIRECT 2.7 mg/dL (0.0-0.4); BILIRUBIN,TOTAL 3.9 mg/dL (0.2-1.3); BLOOD UREA NITROGEN 19 mg/dL (7-20); CARBON DIOXIDE 25 mmol/L (22-30); CHLORIDE 105 mmol/L (98-107); GLUCOSE 89 mg/dL (75-110); POTASSIUM 4.7 mmol/L (3.6-5.0); TOTAL PROTEIN 6.9 g/dL (6.3-8.2)
[2019-11-29 14:55] LABS: ABSOLUTE MONOCYTES # (MANUAL) 0.2 10^3/uL (0.1-1.4); ANISOCYTOSIS 2+; BAND NEUTROPHILS % (MANUAL) 2 % (3-5); BASOPHILS % (MANUAL) 0 % (0-2); EOSINOPHILS % (MANUAL) 2 % (0-6); LYMPHOCYTES % (MANUAL) 9 % (13-45); MONOCYTES % (MANUAL) 2 % (3-13); PLATELET COMMENT ADEQUATE; POIKILOCYTOSIS 2+; POLYCHROMASIA SLIGHT; SEGMENTED NEUTROPHILS % (MAN) 85 % (42-78); TARGET CELLS 2+; TOTAL CELLS COUNTED 100
[2019-11-29] MEDS ORDERED: OXYCODONE HCL IR 5 MG TABLET PO ONE (16:50)
[2019-11-29 17:42] VITALS: BP 125/83
== END 2019-11-29 17:41 | disposition home or self-care (01) ==
LOC: ER 13:46
DX: G89.3 Neoplasm related pain (acute) (chronic) (principal); C80.1 Malignant (primary) neoplasm, unspecified; R10.31 Right lower quadrant pain; R10.32 Left lower quadrant pain; M54.9 Dorsalgia, unspecified; R10.817 Generalized abdominal tenderness; I25.10 Atherosclerotic heart disease of native coronary artery without angina pectoris; I10 Essential (primary) hypertension; I25.2 Old myocardial infarction; Z87.891 Personal history of nicotine dependence; Z95.5 Presence of coronary angioplasty implant and graft; R14.0 Abdominal distension (gaseous)
CPT/HCPCS: 99284; 96374; 36415; 82140; 85025; 80076; 80048; 71045; J1170

== ENCOUNTER 2019-12-13 10:31 | Observation (INO) | payer OTHER ==
[2019-12-13 12:09] LABS: HEMATOCRIT 26.5 % (37.9-51.0); HEMOGLOBIN 8.9 g/dL (13.5-17.0); MEAN CORPUSCULAR HGB CONC 33.4 g/dL (32.0-36.0); MEAN CORPUSCULAR VOLUME 90 fl (80-97); PLATELET COUNT 464 10^3/uL (150-450); RED BLOOD COUNT 2.95 10^6/uL (4.35-5.55); RED CELL DISTRIBUTION WIDTH 20.3 % (11.5-14.0)
[2019-12-13 12:13] LABS: INTERNATIONAL RATION (INR) 0.99; PROTHROMBIN TIME 13.1 SEC (11.4-15.4)
[2019-12-13 12:31] LABS: ANION GAP 8 (5-19); BLOOD UREA NITROGEN 21 mg/dL (7-20); CALCIUM 9.2 mg/dL (8.4-10.2); CARBON DIOXIDE 26 mmol/L (22-30); CHLORIDE 100 mmol/L (98-107); GLUCOSE 96 mg/dL (75-110)
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
--- NOTE | 2019-12-13 17:53 | PDOC DISCHARGE SUMMARY ---
Impression - Admit/DC Date/PCP Admission Date/Primary Care Provider: 12/13/19 10:31 SERGO SELBY MD Discharge Date: 12/13/19 - Discharge Diagnosis (1) Hepatocellular carcinoma Is this a current diagnosis for this admission?: Yes (2) Abdominal ascites Is this a current diagnosis for this admission?: Yes (3) Malignant ascites Is this a current diagnosis for this admission?: Yes - Additional Information Discharge Diet: As Tolerated Discharge Activity: Activity As Tolerated Referrals: SERGO SELBY MD [Primary Care Provider] - Home Medications: RX: Clopidogrel Bisulfate [Plavix 75 mg Tablet] 75 mg PO DAILY 08/03/12 RX: Lisinopril [Prinivil 10 mg Tablet] 10 mg PO DAILY 08/03/12 RX: Aspirin [Aspirin 325 mg Tablet] 325 mg PO DAILY 08/23/13 RX: Rosuvastatin Calcium [Crestor 20 mg Tablet] 20 mg PO DAILY 08/23/13 RX: Metoprolol Succinate [Toprol XL 200 mg Tablet] 200 mg PO DAILY 12/29/15 RX: Albuterol Sulfate [Proair Respiclick] 1 puff IH Q4 12/13/19 RX: Cyclobenzaprine HCl [Flexeril 10 mg Tablet] 10 mg PO TIDP PRN 12/13/19 RX: Gabapentin [Neurontin] 800 mg PO Q8 12/13/19 RX: Megestrol Acetate [Megace 20 mg Tablet] 40 mg PO Q12 12/13/19 RX: Oxycodone HCl [Oxycodone HCl ER] 15 mg PO ASDIR PRN 12/13/19 RX: Pregabalin [Lyrica 75 mg Capsule] 75 mg PO Q12 12/13/19 History of Present Illiness History of Present Illness: DANE HOANG is a 63 year old male, he has advanced metastatic hepatocellular carcinoma, he came to the office yesterday, he complained of severe pain, abdominal distention, he has ascites, patient refused hospice care he wants to stay at home and if necessary. He was admitted essentially for therapeutic abdominal paracentesis for symptom control. Hospital Course Hospital Course: Patient was admitted for the management of malignant ascites he was brought in for therapeutic abdominal paracentesis for symptom control, about 2800 cc of ascites fluid was drained from the abdomen. Patient be discharged home today Physical Exam Vital Signs: Temp Pulse Resp BP Pulse Ox 98.4 F 102 H 18 108/70 96 12/13/19 15:09 12/13/19 15:09 12/13/19 15:09 12/13/19 15:09 12/13/19 15:09 Intake & Output 12/12/19 12/13/19 12/14/19 06:59 06:59 06:59 Weight 79.2 kg General appearance: PRESENT: no acute distress Eye exam: PRESENT: PERRLA Respiratory exam: PRESENT: clear to auscultation shin Cardiovascular exam: PRESENT: +S1, +S2 GI/Abdominal exam: PRESENT: soft Neurological exam: PRESENT: alert Results Laboratory Results: WBC 12.0 10^3/uL (4.0-10.5) H 12/13/19 11:10 RBC 2.95 10^6/uL (4.35-5.55) L 12/13/19 11:10 Hgb 8.9 g/dL (13.5-17.0) L 12/13/19 11:10 Hct 26.5 % (37.9-51.0) L 12/13/19 11:10 MCV 90 fl (80-97) 12/13/19 11:10 MCH 30.0 pg (27.0-33.4) 12/13/19 11:10 MCHC 33.4 g/dL (32.0-36.0) 12/13/19 11:10 RDW 20.3 % (11.5-14.0) H 12/13/19 11:10 Plt Count 464 10^3/uL (150-450) H 12/13/19 11:10 PT 13.1 SEC (11.4-15.4) 12/13/19 11:10 INR 0.99 12/13/19 11:10 Sodium 134.3 mmol/L (137-145) L 12/13/19 11:10 Potassium 5.0 mmol/L (3.6-5.0) 12/13/19 11:10 Chloride 100 mmol/L (98-107) 12/13/19 11:10 Carbon Dioxide 26 mmol/L (22-30) 12/13/19 11:10 Anion Gap 8 (5-19) 12/13/19 11:10 BUN 21 mg/dL (7-20) H 12/13/19 11:10 Creatinine 0.88 mg/dL (0.52-1.25) 12/13/19 11:10 Est GFR ( Amer) > 60 (>60) 12/13/19 11:10 Est GFR (MDRD) Non-Af > 60 (>60) 12/13/19 11:10 Glucose 96 mg/dL (75-110) 12/13/19 11:10 Calcium 9.2 mg/dL (8.4-10.2) 12/13/19 11:10 Stroke Is this a Stroke Patient?: No Acute Heart Failure - Is this a Heart Failure Patient?: No
[2019-12-13 18:21] VITALS: BP 117/64
--- NOTE | 2019-12-14 08:00 | RADIOLOGY REPORT (SQ) ---
EXAM DESCRIPTION: U/S ABD PARACENTESIS IMAGES COMPLETED DATE/TIME: 12/13/2019 4:37 pm REASON FOR STUDY: ASCITES COMPARISON: None. RADIATION DOSE: None LIMITATIONS: None. PROCEDURE: Procedure, risks, benefit, and alternative explained to patient who then gave written con sent. The left lower abdominal wall marked using ultrasound guidance. A time-out was called for cor rect marking verification. Abdomen prepped and draped using sterile technique. Local anesthesia achi eved using 8 ml of 1% lidocaine injection. A 6fr [id number] set was introduced into the periton eal cavity. Fluid was drained. The catheter was removed and entry site was covered with sterile ban dage. No immediate complications noted. Images acquired during the procedure were stored on PACS. FINDINGS: ENTRY SITE: left lower quadrant. FLUID VOLUME: 2800 mL FLUID ANALYSIS: Polly colored fluid OTHER: Therapeutic only. IMPRESSION: SUCCESSFUL ULTRASOUND GUIDED PARACENTESIS. COMMENT: Patient medication list reviewed:Yes- Quality ID# [id number]:Eligible professional attests to docu menting in the medical record they obtained, updated, or reviewed the patient's current medications. TECHNICAL DOCUMENTATION: JOB ID: [id number] [employer]- All Rights Reserved Reading location - IP/workstation name: [email or web address] [id number]
== END 2019-12-13 18:20 | disposition home or self-care (01) ==
LOC: 4N 10:31
PROVIDERS: ADMIT Internal Medicine; ATTEND Radiology Diagnostic Radiology
DX: C22.0 Liver cell carcinoma (principal); R18.0 Malignant ascites; M54.9 Dorsalgia, unspecified; C79.9 Secondary malignant neoplasm of unspecified site; M19.90 Unspecified osteoarthritis, unspecified site; F17.200 Nicotine dependence, unspecified, uncomplicated; E78.5 Hyperlipidemia, unspecified; I10 Essential (primary) hypertension; J44.9 Chronic obstructive pulmonary disease, unspecified; I25.10 Atherosclerotic heart disease of native coronary artery without angina pectoris; M51.36 Other intervertebral disc degeneration, lumbar region; I25.2 Old myocardial infarction; Z79.899 Other long term (current) drug therapy; Z79.82 Long term (current) use of aspirin; Z79.02 Long term (current) use of antithrombotics/antiplatelets; Z95.5 Presence of coronary angioplasty implant and graft; Z90.49 Acquired absence of other specified parts of digestive tract; Z86.19 Personal history of other infectious and parasitic diseases
CPT/HCPCS: 36415; 85027; 85610; 80048; 49083; G0378; G0379